=== PATIENT | male | born 1985 | race Two or more races ===

== ENCOUNTER 2018-10-01 20:49 | Emergency (ER) | payer SELFPAY ==
[2018-10-01] MEDS ORDERED: MEDROL DOSE PACK4 MG PO (22:15)
[2018-10-01 23:34] VITALS: BP 116/73
== END 2018-10-01 23:34 | disposition home or self-care (01) ==
LOC: D.ER 20:49
DX: L23.7 Allergic contact dermatitis due to plants, except food (principal); J02.9 Acute pharyngitis, unspecified